=== PATIENT | female | born 1970 | race Caucasian/White ===

== ENCOUNTER 2020-02-27 13:30 | Emergency (ER) | payer SELFPAY ==
[2020-02-27] MEDS ORDERED: Ketorolac Tromethamine 30 MG/ML VIAL ONE (14:02)
== END 2020-02-27 14:05 | disposition home or self-care (01) ==
LOC: BURERS 13:30
DX: G89.4 Chronic pain syndrome (principal); M79.642 Pain in left hand; M79.641 Pain in right hand; F41.9 Anxiety disorder, unspecified; F32.9 Major depressive disorder, single episode, unspecified; Z79.899 Other long term (current) drug therapy
CPT/HCPCS: 99283; J1885